=== PATIENT | male | born 1965 | race Caucasian/White ===

== ENCOUNTER 2020-08-26 06:30 | Day surgery (SDC) | payer BC ==
[~2020-08-26] VITALS: Ht 182.9 cm; Wt 97.5 kg
[~2020-08-26 06:30] MED LIST: ASPIRIN325 MG PO; IBUPROFEN600 MG PO; LISINOPRIL10 MG PO; TYLENOL W/CODEI1 TAB PO
[2020-08-26 07:00] LABS: BASOPHILS 0.3 % (0-2); EOSINOPHILS 1.7 % (0-7); HEMATOCRIT 46.6 % (42.0-54.0); HEMOGLOBIN 15.9 g/dL (13.5-17.5); IMMATURE GRANULOCYTES 0.1 % (0-5); LYMPHOCYTE ABS# 2.47 10x3/uL (1.32-3.57); LYMPHOCYTES 27.4 % (15-50); MCH 28.3 pg (26.0-34.0); MCHC 34.1 g/dL (31.0-37.0); MCV 82.9 fL (80.0-100.0); MEAN PLATELET VOLUME 9.8 fL (7.4-10.4); MONOCYTES 8.9 % (2-11); NEUTROPHIL ABS# 5.54 10x3/uL (1.78-5.38); NEUTROPHILS 61.6 % (40-80); PLATELET COUNT 332 10x3/uL (130-400); RBC 5.62 10x6/uL (4.20-6.10); RDW 13.2 % (11.5-14.5)
[2020-08-26 07:21] LABS: CALC OSMOLALITY 278 mosm/kg (275-300); CALCIUM 9.5 mg/dL (8.5-10.1); CARBON DIOXIDE 24.2 mmol/L (21.0-32.0); CHLORIDE - SERUM 102 mmol/L (98-107); GLUCOSE 110 mg/dL (74-106); POTASSIUM - SERUM 4.6 mmol/L (3.5-5.1); SODIUM 137 mmol/L (136-145); UREA NITROGEN 25 mg/dL (7-18); eGFR NON AFRICAN AMERICAN 83 mL/min (90-120)
[2020-08-26 08:47] VITALS: BP 129/89; Ht 182.9 cm; Wt 97.5 kg
[2020-08-26] MEDS ORDERED: PERCOCET 10-321 EAC1 PO (10:26)
[2020-08-26] MEDS ORDERED: VISTARIL50 MG PO (10:27)
[2020-08-26] MEDS ORDERED: TORADOL10 MG PO (10:27)
--- NOTE | 2020-08-26 12:55 | NUR ---
1255 INSTRUCTIONS GIVEN AND PT STATED PAIN A 1-2 OFERED PT SOMETHING TO EAT AND A PAIN PILL IF THE PAIN INCREASES. INDEX AND THUMB NUMB. SENSATION TO ALL OTHER DIGITS ON RIGHT HAND. MILD ELEVATED B/P PT STATED HE TAKES HIS MEDS FOR B/P AT NIGHT
--- NOTE | 2020-08-26 13:44 | NUR ---
1330 IV REMOVED AND ASSISTED WITH GETTING DRESSED
--- NOTE | 2020-08-27 06:20 | OP ---
PATIENT NAME: SIDNEY BRUNO MEDICAL RECORD: [id number] :69 LOCATION:[facility] ADMISSION DATE: SURGEON: LESTER GUTIERREZ DO DATE OF OPERATION: 08/26/2020 PROCEDURE PERFORMED: Right shoulder arthroscopy with rotator cuff repair with subacromial decompression, distal clavicle excision, biceps tenodesis and labral debridement. PREOPERATIVE DIAGNOSES: Right shoulder superior labrum anterior and posterior tear, subacromial impingement, acromioclavicular joint arthritis and rotator cuff tendon tear, partial as well as SLAP tear. POSTOPERATIVE DIAGNOSES: Right shoulder superior labrum anterior and posterior tear, subacromial impingement, acromioclavicular joint arthritis and rotator cuff tendon tear, partial as well as SLAP tear. INDICATIONS: Mr. Bruno is a 55-year-old male who has had right shoulder pain for quite some time. He has tried injections, which did not work. In another manner, conservative management started dealing with the pain. Had an MRI showing the above findings, wants something done surgically, just started dealing with the pain. I informed her of the risks and benefits of this procedure including infection, bleeding, damage to vessels, need for further surgery, continued pain, arthrofibrosis, or adhesive capsulitis of the right shoulder, damage to nerves and vessels, need for further surgery, retear of the rotator cuff tendon, continued pain, need for physical therapy and blood clots and even and he signed the consent. SURGEON: Lester Gutierrez DO DESCRIPTION OF PROCEDURE: The patient was taken to the operative suite, given block by anesthesia in the preoperative area in the left lateral decubitus position with the right shoulder up. The patient had been sedated and LMA was placed. He was given 2 grams of Ancef preoperatively. After the right shoulder was prepped and draped in sterile fashion, timeout was performed and everyone was in agreement with correct side, site, patient and procedure. I then began by inflating the joint with 60 mL of normal saline through a posterior portal 18-gauge spinal needle. I then removed that and established a portal with an 11-blade scalpel. Trocar was then entered into the joint. I then entered the camera and established an anterior portal with 18-gauge spinal needle and 11-blade scalpel, trocar entered in. I then a saw the SLAP tear and the tear in the long head of the biceps tendon and then also a greater than 50% thickness tear of the supraspinatus at the anterior fibers going posteriorly and it was frayed down into the joint. I then brought in the shaver and removed that. The subscapularis tendon was in good repair as well as infraspinatus. Northing was in the joint. I then brought in a burner and did a biceps tenotomy, labral debridement and then went to subacromial space, established lateral portal with 18-gauge spinal needle and 11-blade scalpel, did subacromial decompression, acromioplasty through a lateral portal and a distal clavicle excision through the anterior portal. I then extended the wound VAC in the joint. Marked the joint-sided supraspinatus tear with an 18-gauge spinal needle and extended the lateral incision. I made careful dissection down to it and put a larger Regeneten implant on it and stapled into place and went to the anterior humerus and dissected carefully at the long head of the biceps tendon and try to remove it, had to cut it and then do a biceps tenotomy with 2.9 ToggleLoc loop stitch OPERATIVE REPORT [id number] SIDNEY BRUNO and looped it down to the humerus with the anchor and then cut the excess tendon, went back through the tendon and tied it down. We then irrigated. I cut the excess suture, irrigated and Pietro Fregoso, certified surgical sourcing assistant, closed the open sites with 2-0 Vicryl in inverted fashion, 4-0 Monocryl in the skin and 4-0 Monocryl in inverted interrupted fashion on the 2 portals anterior and posterior. He was then dressed with Dermabond, Telfa, and Tegaderm. He was awakened, put in a sling and taken to recovery in stable condition. BLOOD LOSS: Minimal. COMPLICATIONS: None. TRANSINT:[id number] Voice Confirmation ID: [id number] DOCUMENT ID: [id number] LESTER GUTIERREZ DO at 0620 CC: [id number] DICTATION DATE: 08/26/20 1352 RN CHARGE: 08/26/202111 [facility] 08/26/20 [id number] [place] [address]
== END 2020-08-26 13:45 | disposition home or self-care (01) ==
LOC: D.OPS 06:30
PROVIDERS: Anesthesiology; ATTEND Orthopaedic Surgery
DX: M25.511 Pain in right shoulder (principal); M75.101 Unspecified rotator cuff tear or rupture of right shoulder, not specified as traumatic; S43.431A Superior glenoid labrum lesion of right shoulder, initial encounter; M13.811 Other specified arthritis, right shoulder; M75.41 Impingement syndrome of right shoulder